=== PATIENT | male | born 1945 | race Caucasian/White ===

== ENCOUNTER 2023-01-17 05:40 | Day surgery (SDC) | payer OTHER ==
[2023-01-15 12:36] VITALS: BMI 27.8
[2023-01-17] MEDS ORDERED: Lidocaine 1% PF 5 ML VIAL ONE (06:51)
[2023-01-17] MEDS ORDERED: PROPOFOL 40 ML ONE (06:51)
== END 2023-01-17 08:55 | disposition home or self-care (01) ==
LOC: CSHSDC 05:40
PROVIDERS: ATTEND Internal Medicine Gastroenterology
PROC: 0DJD8ZZ Inspection of Lower Intestinal Tract, Via Natural or Artificial Opening Endoscopic (ICD-10-PCS; principal; 2023-01-17)
DX: Z12.11 Encounter for screening for malignant neoplasm of colon (principal); K57.30 Diverticulosis of large intestine without perforation or abscess without bleeding; K64.8 Other hemorrhoids; I10 Essential (primary) hypertension; E78.5 Hyperlipidemia, unspecified; E11.9 Type 2 diabetes mellitus without complications; Z79.84 Long term (current) use of oral hypoglycemic drugs; Z79.899 Other long term (current) drug therapy; Z86.010 Personal history of colon polyps
CPT/HCPCS: J2704